=== PATIENT | male | born 1965 | race Caucasian/White ===

== ENCOUNTER 2018-12-28 16:10 | Inpatient (IN) | payer BC ==
[~2018-12-28] VITALS: Ht 172.7 cm; Wt 77.1 kg
[2018-12-28 16:10] VITALS: BP 134/76
[~2018-12-28 16:10] MED LIST: ASPIR-TRIN325 MG PO; ASPIRIN325 PO; COZAAR 50 MG TA50 MG PO; EFFIENT10 MG PO; LIPITOR80 MG PO; NITROGLYCERIN0.4 MG SL; NOHOMEMEDICATIONS; PEPCID40 MG; TOPROL XL25 MG PO
[2018-12-28 16:28] LABS: ABSOLUTE NEUTROPHILS 7.5 thou/uL (1.4-8.2); BASOPHILS 1.2 % (0.0-2.0); EOSINOPHILS 0.8 % (0.0-3.0); HEMATOCRIT 45.1 % (42.0-52.0); HEMOGLOBIN 15.3 gm/dL (14.0-18.0); MCH 30.9 pg (26.0-34.0); MCV 90.8 fL (80.0-100.0); MONOCYTES 3.7 % (1.0-8.0); PLATELET COUNT 212 thou/uL (150-400); POLYS 77.3 % (36.0-66.0); RBC 4.96 mil/uL (4.50-6.00); RDW 14.4 % (10.5-14.5); WBC 9.7 thou/uL (4.0-11.0)
[2018-12-28 16:36] LABS: CREATININE 1.2 mg/dL (0.7-1.3); POTASSIUM 4.2 mmol/L (3.5-5.1)
[2018-12-28 16:44] LABS: TROPONIN-I 0.06 ng/mL (<0.06)
[2018-12-28 17:42] VITALS: BP 125/77
[2018-12-28 17:55] VITALS: BP 125/77
[2018-12-28 18:19] VITALS: BP 138/78
[2018-12-28 20:05] VITALS: BP 132/74
[2018-12-28 20:46] LABS: CHOLESTEROL 157 mg/dL (<200); HDL CHOLESTEROL 72 mg/dL (>40); LDL CHOLESTEROL 67 mg/dL (<100); TC:HDL 2.2 Ratio (Not establshd); TRIGLYCERIDE 90 mg/dL (<150); VLDL 18 mg/dL (<40)
[2018-12-28 20:49] LABS: SERUM ASSESSMENT Clear
[2018-12-29] VITALS (15 sets, daily range): BP systolic 112–154; BP diastolic 58–90
[2018-12-29 01:22] LABS: CREATININE 1.1 mg/dL (0.7-1.3); POTASSIUM 4.4 mmol/L (3.5-5.1)
--- NOTE | 2018-12-29 01:32 | NUR ---
NEW ADMIT TO THE CCU YESTERDAY EVENING, ARRIVED SHORTLY BEFORE SHIFT CHANGE. PT CALM AND DENIED PAIN AT 1899, TROPONIN DRAWN AT THAT TIME. AT ABOUT 2034, PT CAME OUT TO THE DESK C/O CHEST PAIN/PRESSURE AND ASKING IF WE WERE GOING TO GET AN EKG AT THIS TIME. WHEN ASKING THE PT ABOUT THE PAIN (SEVERITY/HOW LONG), PT SAID, "WELL, NOW IT'S GONE". PT SAID THE PAIN STARTED FIVE MINUTES PRIOR AND THOUGHT WE WOULD WANT TO GET AN EKG WHILE HE WAS HAVING CHEST PAIN. IT WAS EXPLAINED TO PT THAT WE WOULD GET AN EKG IF HE HAD PERSISTENT CHEST PAIN NOT RELIEVED WITH REST. IN RESPONSE, PT SAID THAT STAFF DID NOT CARE THAT HE HAD CHEST PAIN. PT HAS NOT HAD PAIN SINCE. HEPARIN, PEPCID, AND LIPITOR ORDERED FOR HS. PT REFUSED HEPARIN AND PEPCID, STATING THAT HE DID NOT WANT US "PUMPING HIM FULL OF DRUGS". EDUCATION GIVEN ON IMPORTANCE OF BLOOD THINNER AND PREVENTING CLOTS. PT VERBALIZED UNDERSTANDING, BUT STILL THOUGHT THAT IT DID NOT APPLY TO HIM. PT REFUSED TO SIGN FALL CONTRACT, STATING THAT IT DOES NOT APPLY TO HIM AND HE IS "NOT GOING TO SIGN A BUNCH OF PAPERS JUST BECAUSE". PT TOLD IF HE WERE TO START TO HAVE CHEST PAIN AGIAN, TO SIT AND CALL FOR HELP RATHER THAN WALKING UP TO THE DESK. PT EDUCATED ON THE IMPORTANCE OF REST WTIH THE ONSET OF CHEST PAIN. WILL CONTINUE TO MONITOR.
--- NOTE | 2018-12-29 06:12 | NUR ---
PT HAD TWO MORE EPISODES OF CHEST PAIN. THE FIRST TIME, PT WAS BRIEFLY IN BIGEMINY AND PAIN RESOLVED WITH OUT MEDICATION INTERVENTIONS. THE SECOND TIME, PT HAD NO BIGEMINY. THAT TIME, PT WAS GIVEN NITRO SUBLINGUAL X1. PAIN QUICKLY RESOLVED, BUT WAS UNSURE IF THAT WAS A RESULT OF THE NITRO. MORNING EKG OBTAINED AT THAT TIME; REPORT SHOWS SINUS RHYTHM, BUT WILL BE FURTHER INTERPRETED BY MANAGER. WILL CONTINUE TO MONITOR.
--- NOTE | 2018-12-29 16:29 | NUR ---
PT CARE ASSUMED APPROX 0700. PT ALERT AND ORIENTED X4. DENIES PAIN AND SOA. PT BRADYCARDIC BUT ASYMPTOMATIC. BETA ELADIA HELD PER DR CONKLIN. VS OTHERWISE STABLE. CARDIAC CATH DONE WITHOUT ISSUE. INTERVENTION COMPLETED SEE PROCEDURE REPORT FOR DETAILS. POST CATH VSS. RIGHT GROIN POST CATH SITE C/D/I. PT ORDERED BEDREST UNTIL 1800. PT AGREEABLE TO ALLOW NURSING TO GET HIM UP AFTER BEDREST ORDER COMPLETE. NO ONE AT BEDSIDE AT THIS TIME. HAS BEEN HERE INTERMITTENTELY AND DENIES QUESTIONS AND CONCERNS REGARDING POC WELL PT. BOTH AND PT WERE ANXIOUS AND AGITATED WHILE WAITING FOR DR CONKLIN TO ROUND. AGITATION SOMEWHAT RESOLVED AT THIS TIME. POST CATH IVF INFUSING AT THIS TIME. NO DISTRESS NOTED.
[2018-12-30 00:25] VITALS: BP 127/67
--- NOTE | 2018-12-30 02:18 | NUR ---
ASSESSMENT CHARTED. VSS. PT DENIES CP, N/V, DIZZINESS, SOA. R GROIN SITE CDI, NO HEMATOMA. SLEEPING WELL. PLAN FOR AM LABS. PT HOPEFUL TO D/C TODAY. WILL CONTINUE TO MONITOR AND WITH POC.
[2018-12-30 04:07] VITALS: BP 113/59
[2018-12-30 05:09] LABS: GLYCOHEMOGLOBIN (HGB A1C) 5.9 % (4.8-5.6)
[2018-12-30 05:32] LABS: HEMATOCRIT 41.6 % (42.0-52.0); HEMOGLOBIN 13.8 gm/dL (14.0-18.0); MCH 30.4 pg (26.0-34.0); MCHC 33.2 g/dL (28.0-37.0); MCV 91.4 fL (80.0-100.0); RBC 4.55 mil/uL (4.50-6.00); RDW 14.7 % (10.5-14.5); WBC 8.6 thou/uL (4.0-11.0)
[2018-12-30 05:49] LABS: ALBUMIN 3.4 g/dL (3.4-5.0); CALCIUM 8.9 mg/dL (8.5-10.1); POTASSIUM 4.6 mmol/L (3.5-5.1); TOTAL BILIRUBIN 0.6 mg/dL (<0.1-1.0)
[2018-12-30 08:09] VITALS: BP 141/72
[2018-12-30] MEDS ORDERED: EFFIENT10 MG PO (11:41)
[2018-12-30 12:15] VITALS: BP 141/72
--- NOTE | 2018-12-30 12:30 | NUR ---
PT AGGITATED WAITING FOR DISCHARGE ORDERS. PAPER FOR DISCHARGE GIVEN TO PT WITH SPOUSE. AND REFUSED CARDIAC REHAB AT THIS TIME OR ANY INFORMATION REGARDING TO TEACHING ON HOSPITAL STAY AND DC TO HOME. PT SIGNED IS DISCHARGE INSTRUCTIONS AND DISMISAL DONE.
--- NOTE | 2018-12-31 08:59 | EKG ---
[address] [address] ELECTROCARDIOGRAM REPORT Name: KAUSHAL HEDRICK Room #: 218-P [facility] IN [facility].#: [id number] Admission: 12/28/18 Attend Phys: Osmani Carr MD Discharge: 12/30/18 Date of : 61 Report #: [id number] THIS REPORT FOR: //name// [facility] ED Test Date: 2018-12-28 Test Time: 16:13:50 Pat Name: KAUSHAL HEDRICK Department: Room: 218 Gender: M Documentation [facility] 1965 Requested By: Cooper Kidd Order Number: [id number] MD: Triston Zelaya Measurements Intervals [place] Rate: 78 P: 55 IN: 147 QRS: 21 QRSD: 85 T: 44 QT: 389 QTc: 444 Interpretive Statements Sinus rhythm Left atrial enlargement Baseline wander in lead(s) V4 Compared to ECG 12/10/2013 07:59:33 Atrial abnormality now present T-wave abnormality no longer present Possible ischemia no longer present Prolonged QT interval no longer present Electronically Signed On 12-31-2018 8:58:58 CDT by Triston Zelaya [email or web address] <ELECTRONICALLY SIGNED> By: Triston Zelaya MD 12/31/18 0858 1613 1613 Triston Zelaya MD /EPI
--- NOTE | 2018-12-31 09:01 | EKG ---
[address] [address] ELECTROCARDIOGRAM REPORT Name: KAUSHAL HEDRICK Room #: 218-P [facility] IN 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
--- NOTE | 2018-12-31 09:03 | EKG ---
[address] [address] ELECTROCARDIOGRAM REPORT Name: KAUSHAL HEDRICK Room #: 218-[facility] IN ..#: [id number] Admission: 12/28/18 Attend Phys: Osmani Carr MD Discharge: 12/30/18 Date of : 61 Report #: [id number] THIS REPORT FOR: //name// [facility] Test Date: 2018-12-29 Test Time: 04:20:00 Pat Name: KAUSHAL HEDRICK Department: Room: 218 Gender: M Aromatherapist: VD : 1965 Requested By: Nel Ramírez Order Number: [id number] MD: Triston Zelaya Measurements Intervals [place] Rate: 50 P: 58 ME: 140 QRS: 24 QRSD: 92 T: 54 QT: 476 QTc: 435 Interpretive Statements Sinus rhythm Probable left atrial enlargement Compared to ECG 12/10/2013 07:59:33 Electronically Signed On 12-31-2018 9:03:21 CDT by Triston Zelaya [email or web address] <ELECTRONICALLY SIGNED> By: Triston Zelaya MD 12/31/18 09 042 0420 Triston Zelaya MD /GARTH
--- NOTE | 2019-01-05 16:29 | CATHLAB ---
[facility] [place] [address] INVASIVE PROCEDURE REPORT Name: KAUSHAL HEDRICK Room #: 218-P [facility] IN [facility]#: [id number] Admission: 12/28/18 Attend Phys: Osmani Carr MD Discharge: 12/30/18 Date of : 61 Date of Service: 01/05/19 1629 Report #: [id number] THIS REPORT FOR: //name// ADDENDUM APPROVED REPORT Study performed: 12/29/2018 12:42:24 Patient Details Patient Status: In-Patient Room #: The patient is a 53 year-old male Event Personnel Adalberto Brownlee [employer] Director, Toni Spivey RN RN, Jennifer Francisco Monitor, Mervin Aldana RTR Scrub Procedures Performed Art Access - R femoral artery* 99877 Initial Mod Sed Same Phys/QHP Gr5y 952318 27022 Mod Sed Same Phys/QHP Ea 613038 Left Heart Cath w/or w/o Coronaries 4632074 [facility] [address] w/wo Plasty Single LAD 228473 Hemostasis w/ Mynx, supervision of conscious sedation Indication Non-STEMI (>12 hrs to = 24 hrs) Risk Factors Dysplipidemia , Coronary Artery DiseaseHypertension Procedure Narrative The patient was brought urgently to the Cardiac Catheterization Laboratory and was prepped and draped in a sterile manner. The Right Groin^ was infiltrated with 1% Lidocaine subcutaneous anesthesia. A PINNACLE 6FR Sheath #[id number] sheath was inserted into the RFA^. Coronary angiography was performed using coronary diagnostic catheters. The right coronary system was accessed and visualized with a JR 4 catheter. The left coronary system was accessed and visualized with a JL 4 catheter. The left ventricle was accessed and visualized with a Pigtail catheter. Left ventricular/Aortic Valve gradient assessed via catheter pullback. Closure device was deployed with a 6 Fr Mynx. The patient tolerated the procedure well and there were no complications associated with the procedure. There was no hematoma. Intraoperative Conscious Sedation Sedation start time: 13:31 Case end Time: [address] [address] INVASIVE PROCEDURE REPORT Name: KAUSHAL HEDRICK Room #: 218-P [facility]#: [id number] Admission: 12/28/18 Attend Phys: Osmani Carr MD Discharge: 12/30/18 Date of : 61 Date of Service: 01/05/19 1629 Report #: [id number] 14:15 Versed 4 mg Fluoro Time: 7.10 minutes Dose: DAP 6085.00 cGycm2 901 mGy Contrast Type and Amount: Omnipaque 200 ml Coronary Angiography The patient's coronary anatomy is right dominant. Diagnostic Cath Left Main Normal origin and caliber bifurcates that anterior descending left circumflex. There is a distal tapering of approximately 30%. No flow-limiting lesions noted LAD Moderate caliber vessel which is subtotally occluded prior to a LAD stent in place. Distal to the stent a straining size vessel is noted with JONATAN 1 flow at best. Percent low branch prior to this occlusion is small and significant caliber vessel Diagonal 1 Smolen significant caliber vessel without significant lesions noted Circumflex Small-caliber vessel which has a eccentric lesion proximally 70%. Then proceeds and bifurcates into marginal branches which are small in caliber. In the first marginal branch the high-grade lesion proximally as well as a second a both the vessel appeared to be less than 1 mm in diameter. The entire left circumflex at its widest girth appears to be 2 mm in length. OM1 Smolen significant caliber vessel with high-grade lesions OM2 : Significant caliber vessel with high-grade lesion Right Coronary Moderate to large caliber vessel of normal origin which tapers proximally. There is an eccentric lesion of approximately 50% as it courses in the AV groove to the acute margin. This lesion is not flow-limiting. The vessel then continues on to the posterior aspect of circulation were numerous small to diminutive vessels arise. R PDA Diminutive size vessel without significant high-grade lesions RPLV Small insignificant t caliber vessel with a subtotal proximal lesion noted. The vessel is less than half a millimeter in diameter Left Ventriculography Left Ventriculography was not performed. Hemodynamics The aortic pressure is 146/61 mmHg with a mean of 97 mmHg. The left ventricular pressure is 170/15 mmHg with a mean of mmHg. The left [facility] [address] [place] [address] INVASIVE PROCEDURE REPORT Name: KAUSHAL HEDRICK Room #: 218-P [facility] IN M.R.#: [id number] Admission: 12/28/18 Attend Phys: Osmani Carr MD Discharge: 12/30/18 Date of : 61 Date of Service: 01/05/19 1629 Report #: [id number] ventricular end diastolic pressure is 33 mmHg. PCI Technique Subsequent to the diagnostic left heart catheter position portion was felt that the subtotal LAD was appropriate to dilate. At system was changed to accommodate that dilatation catheters. An 14 wire was then advanced distally into the LAD and several balloons were then utilized to predilate proximal lesion. Subsequent to this a Medtronic FAHEEM 2.5 x 12 Stent was deployed proximal to the prior stent and fully dilated. It was then dilated to 18 irwin reaching quarter size with excellent flow. There is no loss of side branch distal embolization intraluminal thrombus noted. Bicarbonate HEENT 400 mg were given intracoronary early post dilatation to improve flow. PCI Technique Lesion Percutaneous coronary intervention was performed on the proximal left anterior descending artery segment. A LAUNCHER 6FR JL4 #[id number] Guide Catheter was used to engage the ostium. A Luge Wire (J) .014 X 182CM #[id number] Interventional Guidewire was used to cross the lesion. BALLOON DILATION A Balloon catheter Sprinter OTW 2.75 x 12 #[id number] was inserted and inflated up to 10.00atm for 10seconds. STENT DEPLOYMENT A drug-eluting stent RESOLUTE FRANDY OTW 2.75 X 15 #[id number] was inserted and inflated up to 14.00atm for 15seconds. Additional Inflation: 18.00atm for 10seconds. Conclusion 1. Coronary disease multivessel with subtotal LAD 2. Abnormal he without his elevated left ventricular end-diastolic pressure 3. Successful percutaneous revascularization with a Medtronic FAHEEM 2.5 mm stent taken to 18 irwin Recommendations Cardiac Risk Reduction Program Medical Therapy [facility] [address] [place] [address] INVASIVE PROCEDURE REPORT Name: KAUSHAL HEDRICK Dave Room #: 218-P [facility] M.R.#: [id number] Admission: 12/28/18 Attend Phys: Osmain Carr MD Discharge: 12/30/18 Date of : 61 Date of Service: 01/05/19 1629 Report #: [id number] Medications Administered Prasugrel <ELECTRONICALLY SIGNED> By: Adalberto Brownlee MD 01/05/19 1629 28 28 Adalberto Brownlee MD /INF
== END 2018-12-30 12:34 | disposition home or self-care (01) | DRG 247 ==
LOC: ER 16:10 → EROBS 17:34 → 2N 18:09
PROVIDERS: Emergency Medicine; Internal Medicine; Nurse Practitioner Family; ADMIT Hospitalist
PROC: 027034Z Dilation of Coronary Artery, One Artery with Drug-eluting Intraluminal Device, Percutaneous Approach (ICD-10-PCS; principal; 2018-12-29)
PROC: B2111ZZ Fluoroscopy of Multiple Coronary Arteries using Low Osmolar Contrast (ICD-10-PCS; principal; 2018-12-29)
PROC: 4A023N7 Measurement of Cardiac Sampling and Pressure, Left Heart, Percutaneous Approach (ICD-10-PCS; principal; 2018-12-29)
DX: I21.4 Non-ST elevation (NSTEMI) myocardial infarction (principal); E78.5 Hyperlipidemia, unspecified; I10 Essential (primary) hypertension; F17.210 Nicotine dependence, cigarettes, uncomplicated; I25.10 Atherosclerotic heart disease of native coronary artery without angina pectoris; I25.2 Old myocardial infarction; Z95.5 Presence of coronary angioplasty implant and graft; Z82.49 Family history of ischemic heart disease and other diseases of the circulatory system; Z79.82 Long term (current) use of aspirin; Z79.899 Other long term (current) drug therapy; Z84.89 Family history of other specified conditions; Z71.6 Tobacco abuse counseling
CPT/HCPCS: 10081

== ENCOUNTER → 2019-01-09 | Outpatient (CLI) | payer BC ==
--- NOTE | 2019-01-09 15:22 | NUR ---
PT ARRIVES VIA CART AT 1510 FROM RADIOLOGY POST PSEUDO ANYEURISM INJECTION. PT FLAT WITH HOB APPROX 15 DEGREES. PT HAS NO COMPLAINTS AT THIS TIME. WILL CONTINUE TO MONITOR HEMATOMA TO RIGHT GROIN. HEMATOMA APPROX 2.5 INCHES LONG BY 1.5 INCHES WIDE.
--- NOTE | 2019-01-09 15:48 | NUR ---
1548- RN BEDSIDE FOR GROIN SITE CHECK. HEMATOMA SIZE MAINTAINED. NO BLEEDING. PT HAS NO COMPLAINTS AT THIS TIME. VSS.
--- NOTE | 2019-01-09 16:01 | NUR ---
PT RESTING COMFORTABLTY WITH NO PAIN AT THIS TIME. NO CHANGE IN CHARACTERISTICS OF HEMATOMA. NO BLEEDING. WILL CONTINUE TO MONITOR. VSS.
--- NOTE | 2019-01-09 16:19 | NUR ---
PT RESTING COMFORTABLY IN BED. NO CHANGE IN HEMATOMA. PT PAIN FREE THIS TIME. NO BLEEDING. VSS. WILL CONTINUE TO MONITOR.
--- NOTE | 2019-01-09 16:56 | NUR ---
PT AMBULATED AT THIS TIME WITHOUT GROIN INCEDENCE. AMBULATORY WITH STEADY GAIT. NO PAIN. PT REFUSING WHEELCHAIR AND WOULD RATHER WALK TO EXIT BY HIMSELF. PT TOLD TO FOLLOW UP WITH PCP WITH CONCERNS. PT ACKNOWLEDGES DISCHARGE INSTRUCTIONS AND VERBALIZES UNDERSTANDING.
== END ==
LOC: ULTRA 13:23
DX: I72.4 Aneurysm of artery of lower extremity (principal); I25.2 Old myocardial infarction; Z98.890 Other specified postprocedural states; Z88.8 Allergy status to other drugs, medicaments and biological substances; Z79.82 Long term (current) use of aspirin; Z79.899 Other long term (current) drug therapy

== ENCOUNTER 2019-02-13 06:21 | Observation (INO) | payer BC ==
[~2019-02-13] VITALS: Ht 172.7 cm; Wt 77.6 kg
[2019-02-13 06:58] VITALS: BP 116/73
[2019-02-13 07:08] LABS: HEMATOCRIT 42.7 % (42.0-52.0); HEMOGLOBIN 14.2 gm/dL (14.0-18.0); MCH 30.5 pg (26.0-34.0); MCHC 33.2 g/dL (28.0-37.0); MCV 91.9 fL (80.0-100.0); RBC 4.65 mil/uL (4.50-6.00); RDW 13.8 % (10.5-14.5); WBC 5.7 thou/uL (4.0-11.0)
[2019-02-13] MEDS ORDERED: RANEXA500 MG PO (07:10)
[2019-02-13 07:15] LABS: CALCIUM 9.2 mg/dL (8.5-10.1); CREATININE 1.1 mg/dL (0.7-1.3); POTASSIUM 4.1 mmol/L (3.5-5.1)
[2019-02-13 07:18] LABS: APTT 29.5 Seconds (24.5-32.8); PROTIME 9.8 Seconds (9.3-11.4)
--- NOTE | 2019-02-13 09:19 | EKG ---
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: Mellissa SUN : 1965 Requested By: Willard Rachel Order Number: [id number] MD: Jorge Vences Measurements Intervals [place] Rate: 52 P: 65 NM: 152 QRS: 28 QRSD: 77 T: 47 QT: 461 QTc: 429 Interpretive Statements Sinus bradycardia Abnormal R-wave progression, early transition Compared to ECG 12/29/2018 04:20:00 No significant changes Electronically Signed On 02-13-2019 9:19:06 CDT by Jorge Vences [email or web address] <ELECTRONICALLY SIGNED> By: Jorge Vences MD, [facility] 02/13/19918 0 0 Jorge Vences MD, [facility] /EPI
--- NOTE | 2019-02-13 20:26 | NUR ---
PT ARRIVED ON UNIT AT APPROX 1415 FROM [place]. ADMIT ASSESSMENTS AND EDUCATION COMPLETE. VSS. A&OX4. NO C/O PAIN. R GROIN SITE IS CDI. WHEN PT ARRIVED ON UNIT BEDREST WAS COMPLETE, PT UP AD HARDEEP TO BATHROOM, BUT OTHERWISE TO STAY IN BED. WILL CONTINUE TO MONITOR AND FOLLOW POC.
[2019-02-13 20:45] VITALS: BP 124/73
[2019-02-14 00:50] VITALS: BP 125/59
[2019-02-14 04:47] VITALS: BP 107/54
--- NOTE | 2019-02-14 05:28 | NUR ---
ASSESSMENT DOCUMENTED.PT BEEN RESTING IN NO ACUTE DISTRESS.A/OX4.POST CARDAIC DANIE.RIGHT GROIN INTACT ,SOFT W/O HEMATOMA.P BEEN UP INDEPENDENTLY,GAIT STAEDY.VSS.POSSIBLE DISCHARGE THIS AM.
[2019-02-14 05:50] LABS: HEMATOCRIT 36.5 % (42.0-52.0); MCH 30.6 pg (26.0-34.0); MCHC 32.7 g/dL (28.0-37.0); MCV 93.5 fL (80.0-100.0); RBC 3.9 mil/uL (4.50-6.00); RDW 14.3 % (10.5-14.5); WBC 6.9 thou/uL (4.0-11.0)
[2019-02-14 05:59] LABS: HEMOGLOBIN 11.9 gm/dL (14.0-18.0)
[2019-02-14 06:10] LABS: CALCIUM 8.4 mg/dL (8.5-10.1); CREATININE 0.9 mg/dL (0.7-1.3); POTASSIUM 4.4 mmol/L (3.5-5.1); TOTAL BILIRUBIN 0.3 mg/dL (<0.1-1.0); TOTAL PROTEIN 5.8 g/dL (6.4-8.2); TROPONIN-I 0.21 ng/mL (<0.06)
--- NOTE | 2019-02-14 08:14 | EKG ---
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: YAEL : 1965 Requested By: Willard Rachel Order Number: [id number] MD: Jorge Vences Measurements Intervals [place] Rate: 56 P: 43 TN: 158 QRS: 6 QRSD: 74 T: 41 QT: 430 QTc: 416 Interpretive Statements Sinus bradycardia Otherwise no significant abnormality Compared to ECG 02/13/2019 07:11:09 No significant change was found Electronically Signed On 02-14-2019 8:14:14 CDT by Jorge Vences [email or web address] <ELECTRONICALLY SIGNED> By: Jorge Vences MD, [facility] 02/14/1914 Jorge Vences MD, [facility] /EPI
[2019-02-14 08:28] VITALS: BP 137/72
[2019-02-14 10:25] VITALS: BP 137/72
--- NOTE | 2019-02-14 18:04 | CATHLAB ---
[facility] [address] [place] [address] INVASIVE PROCEDURE REPORT Name: FLORIDALMAKAUSHAL JIMENEZ Room #: 209-P [facility] IN .R.#: [id number] Admission: 02/13/19 Attend Phys: Willard Rachel, Discharge: 02/14/19 Date of : 61 Report #: [id number] THIS REPORT FOR: //name// APPROVED REPORT Study performed: 02/13/2019 07:52:38 Patient Details Patient Status: Out-Patient Room #: The patient is a 53 year-old male Event Personnel Willard Rachel Lighting Designer, Dandy Frye RN, Jes Lin RTR, EMPLOYMENT CONSULTANT Monitor, Bobo Hammer RTR Scrub Procedures Performed Art Access - R femoral artery* Left Heart Cath w/or w/o Coronaries [id number] [facility] Aortogram Abdominal Peripheral Angio 8727[address] Place w/wo Plasty Single PDA 949993 Hemostasis w/ Mynx 32598 Initial Mod Sed Same Phys/QHP Gr5y 933020 05417 Mod Sed Same Phys/QHP Ea 164486 Indication Chest pain Procedure Narrative The Right Groin^ was infiltrated with 1% Lidocaine subcutaneous anesthesia. A PINNACLE 6FR Sheath #[id number] sheath was inserted into the RFA^. Coronary angiography was performed using coronary diagnostic catheters. The right coronary system was accessed and visualized with a JR4 catheter. The left coronary system was accessed and visualized with a JL4 catheter. The left ventricle was accessed and visualized with a Pigtail catheter. Left ventriculogram was performed in 30 degree projection. An aortogram of the abdominal aorta was performed. Closure device was deployed with a 6 Fr MYNXGRIP 6/7F #[id number]. There was no hematoma. Intraoperative Conscious Sedation Sedation start time: 08:38 Case end Time: 09:51 Fentanyl 100 mcg Versed 2 mg Fluoro Time: 11.13 minutes Dose: DAP 38808.70 cGycm2 1666 mGy Contrast Type and Amount: Omnipaque 200 ml [facility] [address] [place] [address] INVASIVE PROCEDURE REPORT Name: KAUSHAL HEDRICK BARBARA Room #: 209-P [facility] IN M.R.#: [id number] Admission: 02/13/19 Attend Phys: Willard Rachel, Discharge: 02/14/19 Date of : 61 Report #: [id number] Hemodynamics The aortic pressure is 132/65 mmHg with a mean of 94 mmHg. The left ventricular pressure is 138/4 mmHg with a mean of mmHg. The left ventricular end diastolic pressure is 23 mmHg. PCI Technique Lesion Percutaneous coronary intervention was performed on the right posterior descending artery. A LAUNCHER 6FR JR 4 #931474 Guide Catheter was used to engage the ostium. A Luge Wire .014 x 182CM #[id number] Interventional Guidewire was used to cross the lesion. BALLOON DILATION A Balloon catheter Sprinter OTW 2.25 x 12 #[id number] was inserted and inflated up to 6.00atm for 17seconds. Additional Inflation: 8.00atm for 25seconds. Additional Inflation: 10.00atm for 26seconds. STENT DEPLOYMENT A drug-eluting stent RESOLUTE FRANDY OTW 2.25 X 12 #[id number] was inserted and inflated up to 12.00atm for 27seconds. Conclusion #1 successful PTCA stent of a subtotaled PDA lesion after the bifurcation to 0% with a 2.25 x 12 Frandy post I to 2.4 mm JONATAN grade 3 flow #2 the dominant right has an eccentric proximal lesion of 65-70% and then a distal lesion of 65-70% will continue to treat these medically. #3 left main is short mild disease giving rise to LAD and circumflex #4 the LAD is eccentric 40-50% proximal lesion then a proximal segment with Ryer stents with mild in-stent restenosis an eccentric 50-60% mid vessel lesion and diffuse disease around the apex no indication for intervention. #5 circumflex OM there is a ramus branch mildly disease in the in the circumflex and 70-80% and a diffusely disease attenuated vessel no indication for intervention relatively small in caliber and distribution. #6 normal left ventricular size and systolic function EF 55% small area of hypokinesis in the mid inferior wall #7 abdominal aortogram mildly disease ectatic iliac system abdominal aorta intact without aneurysm renal arteries appear widely patent Recognitions and plan continue aggressive risk factor modification. [facility] [address] [place] [address] INVASIVE PROCEDURE REPORT Name: KAUSHAL HEDRICK Room #: 209-P [facility] IN M.R.#: [id number] Admission: 02/13/19 Attend Phys: Willard Rachel, Discharge: 02/14/19 Date of : 61 Report #: [id number] Dual antiplatelet therapy indefinitely with this new stent placement. Moderate disease would treat medically no other indication for intervention at this time in coronary distribution. Hemodynamically stable transfer to CCU to follow stent protocol. <ELECTRONICALLY SIGNED> By: Willard Rachel MD, FAC 02/14/191802 02 02 Willard Rachel MD, FACC /INF
== END 2019-02-14 12:02 | disposition home or self-care (01) ==
LOC: CATH 06:21 → 2N 13:25 → CATH 14:20 → ENTRNSPT 02-14 11:53 → EDTRNSPTSTS 02-14 11:56 → 2N 02-14 12:02
PROVIDERS: ADMIT Internal Medicine Cardiovascular Disease
DX: I25.10 Atherosclerotic heart disease of native coronary artery without angina pectoris (principal); I10 Essential (primary) hypertension; E78.5 Hyperlipidemia, unspecified; I65.29 Occlusion and stenosis of unspecified carotid artery; I25.2 Old myocardial infarction; Z79.82 Long term (current) use of aspirin; Z79.899 Other long term (current) drug therapy

== ENCOUNTER → 2020-08-04 | Outpatient (CLI) | payer BC ==
[~2020-08-04] MED LIST changes: +RANEXA500 MG PO
== END ==
LOC: SJCVCIMAG 08:21
PROVIDERS: ATTEND Internal Medicine Cardiovascular Disease
DX: R00.1 Bradycardia, unspecified (principal); I25.10 Atherosclerotic heart disease of native coronary artery without angina pectoris; Z95.5 Presence of coronary angioplasty implant and graft